=== PATIENT | male | born 1960 | race Caucasian/White ===

== ENCOUNTER 2017-08-28 07:06 | Emergency (ER) | payer MEDICAID, OTHER ==
[~2017-08-28] VITALS: Ht 180.3 cm; Wt 100.6 kg
[2017-08-28] MEDS ORDERED: OXYC5CAP2 PO (07:28)
[2017-08-28] MEDS ORDERED: BUPIVACAINE 0.25% ONE (07:56)
[2017-08-28] MEDS ORDERED: LIDOCAINE 1%, 20ML ONE (07:56)
[2017-08-28] MEDS ORDERED: LIDOCAINE 1%, 20ML SQ ONE (08:00)
[2017-08-28] MEDS ORDERED: BUPIVACAINE/PF-EPI 0.25% 1:200K SQ ONE (08:00)
[2017-08-28 08:11] VITALS: BP 144/98
== END 2017-08-28 08:51 | disposition home or self-care (01) ==
LOC: ED 08:00
DX: K02.9 Dental caries, unspecified (principal); I10 Essential (primary) hypertension
CPT/HCPCS: 64400; 99284; J3490